=== PATIENT | male | born 1980 | race Caucasian/White ===

== ENCOUNTER 2017-11-13 19:55 | Emergency (ER) | payer MEDICARE ==
[~2017-11-13] VITALS: Ht 185.4 cm; Wt 92.0 kg
[~2017-11-13 19:55] MED LIST: IBUP-1986 PO; METH-360 PO; OMEP-84 PO; ZOF4T PO
[2017-11-13 20:08] VITALS: BP 133/89
[2017-11-14] MEDS ORDERED: AZIT500T PO (22:30)
== END 2017-11-13 22:33 | disposition left against medical advice (07) ==
LOC: ER 19:55
DX: R06.02 Shortness of breath (principal); Z53.21 Procedure and treatment not carried out due to patient leaving prior to being seen by health care provider
CPT/HCPCS: 93005

== ENCOUNTER 2018-02-10 19:24 | Emergency (ER) | payer MEDICARE, MEDICAID ==
[~2018-02-10] VITALS: Ht 185.4 cm; Wt 109.0 kg
[2018-02-10 19:33] VITALS: BP 169/107
[2018-02-10] MEDS ORDERED: IBUP-1985 PO (20:30)
[2018-02-10] MEDS ORDERED: ketorolac trometh. 30mg/ml inj. IM ONE (20:30)
[2018-02-10] MEDS ORDERED: CYCL-1 PO (20:30)
== END 2018-02-10 20:53 | disposition home or self-care (01) ==
LOC: ER 19:24
DX: S39.012A Strain of muscle, fascia and tendon of lower back, initial encounter (principal); I10 Essential (primary) hypertension; F17.200 Nicotine dependence, unspecified, uncomplicated; Z90.49 Acquired absence of other specified parts of digestive tract; Z87.442 Personal history of urinary calculi; Z79.899 Other long term (current) drug therapy; X50.1XXA Overexertion from prolonged static or awkward postures, initial encounter; Y93.89 Activity, other specified; Y92.89 Other specified places as the place of occurrence of the external cause; Y99.9 Unspecified external cause status
CPT/HCPCS: 96372; 99283; J1885